=== PATIENT | female | born 1945 | race Caucasian/White ===

== ENCOUNTER 2024-12-20 10:27 | Emergency (ER) | payer MEDICARE, MEDICAID ==
[~2024-12-20] VITALS: Ht 149.9 cm; Wt 49.0 kg
[~2024-12-20 10:27] MED LIST: MAGN400C MT; THE2 MT
[2024-12-20 10:31] VITALS: O2SAT 98
[2024-12-20 11:23] VITALS: TEMP 37
[2024-12-20 11:25] LABS: BASOPHILS % 0.7 % (0.0-2.0); EOSINOPHILS % 2.5 % (0.0-5.0); HEMATOCRIT. 31.4 % (36.0-48.0); MEAN CORPUSCULAR HEMOGLOBIN 28.4 pg (28.0-32.0); MEAN CORPUSCULAR HGB CONC 31.9 g/dL (31.0-37.0); MEAN CORPUSCULAR VOLUME 89.1 fL (81.0-99.0); MEAN PLATELET VOLUME 9.4 fl (7.4-10.4); MONOCYTES % 7.2 % (2.0-8.0); NEUTROPHILS % 68.6 % (40.0-76.0); PLATELET 318 x1000/uL (130-400); RED BLOOD CELL COUNT 3.53 mill/uL (4.2-5.4); RED CELL DISTRIBUTION WIDTH 14.2 % (11.6-14.6); WHITE BLOOD COUNT 7.2 x1000/uL (4.5-11.0)
[2024-12-20 11:32] LABS: CHLORIDE 107 mEq/L (98-107); POTASSIUM 5.1 mEq/L (3.5-5.1); SODIUM 143 mEq/L (136-145)
[2024-12-20 11:33] LABS: CALCIUM 9.3 mg/dL (8.7-10.4); CARBON DIOXIDE 27 mEq/L (21-32)
[2024-12-20 11:38] LABS: GLUCOSE 209 mg/dL (70-105); UREA NITROGEN BLOOD 34 mg/dL (9-23)
[2024-12-20 12:31] LABS: TROPONIN I HIGH SENSITIVITY < 4 ng/L (3.0-34)
[2024-12-20] MEDS: LABETALOL 5MG/ML 4ML INJ IV ONE (12:53)
[2024-12-20 14:30] VITALS: BP 190/62; PULSE 70; RESP 14; O2SAT 98
== END 2024-12-20 14:41 | disposition home or self-care (01) ==
LOC: ER 10:27 → CANBEDREQ 14:18 → ER 14:41
DX: I10 Essential (primary) hypertension (principal); E11.9 Type 2 diabetes mellitus without complications; E78.00 Pure hypercholesterolemia, unspecified; Z79.899 Other long term (current) drug therapy
CPT/HCPCS: 99285; 96374; 71045; 80048; 82962; 85025; 84484; 36415; 93005; J3490; A4606